=== PATIENT | male | born 1955 | race Caucasian/White ===

== ENCOUNTER 2016-10-12 03:55 | Emergency (ER) | payer BC ==
[2016-10-12 04:00] VITALS: PULSE 61; TEMP 97.5
--- NOTE | 2016-10-12 04:02 | EDPHY ---
H & P Stated Complaint: SWELLING TO 1 SIDE OF PENIS AFTER E.D. INJECTION MED HPI/ROS: HPI CHIEF COMPLAINT: Penile swelling at injection site HISTORY OF PRESENT ILLNESS: This patient is 60-year-old male, denies having any significant medical history lives in [place], he is out here visiting with his girlfriend, around 11:00 p.m. he injected his penis with TRIMEX for erectile dysfunction medication. He typically injects his penis at the distal aspect before the glans at the 10 o'clock position. He thinks that he may went a little bit more lower than this. He tells me that he had normal intercourse. Got up to urinate around 2 o'clock in realize the end of his penis was swollen. No pain. Denies any pain with urination. Denies any bleeding. He has never had this before his use this medication multiple times. He has a non erect penis. Denies any direct trauma. Past Medical History: No significant medical history Past Surgical History: Denies surgical history Social History: Lives in [facility], denies drugs alcohol tobacco products, visiting with his girlfriend. Family History: Noncontributory ROS REVIEW OF SYSTEMS: A comprehensive 10 point review of systems is otherwise negative aside from elements mentioned in the history of present illness. Exam Constitutional triage nursing summary reviewed, vital signs reviewed, awake/ alert. Eyes normal conjunctivae and sclera, EOMI, PERRLA. HENT normal inspection, atraumatic, moist mucus membranes, no epistaxis, neck supple/ no meningismus, no raccoon eyes. Respiratory clear to auscultation bilaterally, normal breath sounds, no respiratory distress, no wheezing. Cardiovascular rate normal, regular rhythm, no murmur, no edema, distal pulses normal. Gastrointestinal soft, non-tender, no rebound, no guarding, normal bowel sounds, no distension, no pulsatile mass. Genitourinary exam circumcised male. Not a rect. At the 9:00 to 11:00 position on the right side of his penis there is swelling localized subcutaneous. Swelling is minimal, minimal tenderness. No blood from the meatus. No discharge. Bilateral descended testicles. No ecchymosis, no hemtaom. There is no crepitus. No gas. Minimal tenderness palpation. No signs of infection specifically no cellulitis, no pus. No drainage. Musculoskeletal no midline vertebral tenderness, full range of motion, no calf swelling, no tenderness of extremities, no meningismus, good pulses, neurovascularly intact. Skin pink, warm, & dry, no rash, skin atraumatic. Neurologic awake, alert and oriented x 3, AAOx3, moves all 4 extremities equally, motor intact, sensory intact, CN II-XII intact, normal cerebellar, normal vision, normal speech. Psychiatric normal mood/affect. Heme/Lymph/Immune no lymphadenopathy. Differential Diagnosis: Includes but is not limited to in a particular order, direct penile trauma, injection site inflammation, urethral trauma Medical Decision Making: Plan for this patient check urinalysis, ice pack. Consult Urology. Re-evaluation: 0445AM: Patient does tell me that since he knows swelling of his penis before urinated around 230 swelling has went down with ice pack. He states the swelling is much improved. He tells me her swollen before he urinated. 0448: I spoke with Urology: Dr. Keegan Oliva, Recommends cool compresses. Most likely subQ inejection or hit a little vessel. No large hematoma/ecchymosis on exam. States that most likely is not a urethral injury cousins very small needle in even if there was a small puncture wound to the reach throws does not usually cause any issues. Okay to check urinalysis. If the patient is voiding fine he recommends allowing the patient to go home ice pack return emergency room if he has worsening swelling pain or trouble voiding. 0520AM: Urinalysis clean. Patient understands return emergency room if develops worsening swelling, pain dysuria or any questions or concerns. Cool compresses. Source: Patient - Personal History Current Tetanus/Diphtheria Vaccine: Yes Current Tetanus Diphtheria and Acellular Pertussis (TDAP): Yes - Medical/Surgical History Hx Asthma: No Hx Chronic Respiratory Disease: No Hx Diabetes: No Hx Cardiac Disease: No Hx Renal Disease: No Hx Cirrhosis: No Hx Alcoholism: No Hx HIV/AIDS: No Hx Splenectomy or Spleen Trauma: No Other PMH: HTN GERD BPH - Social History Smoking Status: Never smoked Constitutional: Initial Vital Signs Temperature (C) 36.4 C 10/12/16 03:58 Heart Rate 61 10/12/16 03:58 Respiratory Rate 18 10/12/16 03:58 Blood Pressure 136/97 H 10/12/16 03:58 O2 Sat (%) 96 10/12/16 03:58 O2 Delivery Mode Room Air Allergies/Adverse Reactions: ofloxacin [From Floxin] Allergy (Verified 10/12/16 04:00) Home Medications: Medication Instructions Recorded Atorvastatin Calcium [Lipitor 10 10 mg PO DAILY 10/12/16 mg (*)] Pantoprazole Sodium [Protonix 40mg 40 mg PO DAILY 10/12/16 (*)] Medical Decision Making - Data Points Laboratory Results: 10/12/16 04:50 Urine Color YELLOW Urine Appearance CLEAR Urine pH 5.0 (5.0-7.5) Ur Specific [place] 1.012 (1.002-1.030) Urine Protein NEGATIVE (NEGATIVE) Urine Ketones NEGATIVE (NEGATIVE) Urine Blood NEGATIVE (NEGATIVE) Urine Nitrate NEGATIVE (NEGATIVE) Urine Bilirubin NEGATIVE (NEGATIVE) Urine Urobilinogen NEGATIVE EU EU (0.2-1.0) Ur Leukocyte Esterase NEGATIVE (NEGATIVE) Urine Glucose NEGATIVE (NEGATIVE) Departure - Departure Disposition: Home, Routine, Self-Care Clinical Impression: Penile swelling Condition: Good Instructions: Priapism (ED), Hematoma (ED) Additional Instructions: 1. Cool compresses to your penis over the next 24 hours. You may do this every 4-6 hours. 2. Minimize trauma. 3. Return emergency review of worsening pain, swelling trouble urinating or questions or concerns. Referrals: SHAHZ[facility] TERRAZAS [Other] - As per Instructions Wyatt Oliva MD [Medical Doctor] - As per Instructions
[2016-10-12 05:16] LABS: COLOR YELLOW; LEUKOCYTE ESTERASE,URINE NEGATIVE (NEGATIVE); NITRITE,URINE NEGATIVE (NEGATIVE)
[2016-10-12 05:37] VITALS: BP 130/93; RESP 16; O2SAT 98
== END 2016-10-12 05:37 | disposition home or self-care (01) ==
DX: N48.89 Other specified disorders of penis (principal); I10 Essential (primary) hypertension